=== PATIENT | female | born 1965 | race Caucasian/White ===

== ENCOUNTER → 2016-08-15 | Outpatient (CLI) | payer OTHER | LOC: RAD 07:17 | DX: Z12.31 Encounter for screening mammogram for malignant neoplasm of breast (principal) ==

== ENCOUNTER → 2016-08-22 | Outpatient (CLI) | payer OTHER | LOC: ULTRA 09:52 | DX: N63 Unspecified lump in breast (principal) ==

== ENCOUNTER → 2017-10-09 | Outpatient (CLI) | payer OTHER | LOC: NUC 10-02 13:29 | DX: E28.39 Other primary ovarian failure (principal); R31.9 Hematuria, unspecified; Z78.0 Asymptomatic menopausal state ==

== ENCOUNTER → 2018-09-03 | Outpatient (CLI) | payer OTHER | LOC: RAD 07:48 | DX: Z12.31 Encounter for screening mammogram for malignant neoplasm of breast (principal) ==

== ENCOUNTER → 2019-08-24 | Outpatient (CLI) | payer OTHER | LOC: BC 08-17 09:16 | DX: Z12.31 Encounter for screening mammogram for malignant neoplasm of breast (principal) ==

== ENCOUNTER → 2019-09-14 | Outpatient (CLI) | payer OTHER | LOC: BC 08:34 | DX: N63.20 Unspecified lump in the left breast, unspecified quadrant (principal) ==

== ENCOUNTER → 2020-08-17 | Outpatient (CLI) | payer OTHER | LOC: BC 10:14 | PROVIDERS: ATTEND Family Medicine | DX: Z12.31 Encounter for screening mammogram for malignant neoplasm of breast (principal) ==